=== PATIENT | female | born 1940 | race Hispanic/Latino ===

== ENCOUNTER 2021-06-04 18:32 | Inpatient (IN) | payer OTHER ==
[2021-06-04] MEDS ORDERED: ACETAMINOPHEN 650MG/RECT SUPP PR PRN (18:51)
[2021-06-04] MEDS ORDERED: BISACODYL 10 MG RECTAL SUPP PR PRN (18:52)
[2021-06-04] MEDS ORDERED: MORPHINE 2 MG/ML SYR IV PRN (18:55)
[2021-06-04] MEDS ORDERED: LORazepam 2 MG/ML VIAL IV PRN (18:56)
[2021-06-04] MEDS ORDERED: ONDANSETRON 4 MG/2 ML VIAL IV PRN (18:56)
[2021-06-04] MEDS ORDERED: SCOPOLAMINE HYDROBROMIDE PATCH TD SCH (20:00)
[2021-06-04] MEDS: LORazepam 2 MG/ML VIAL IV SCH (20:03)
[2021-06-04] MEDS: MORPHINE 2 MG/ML SYR IV SCH ×2 (20:06→22:47)
[2021-06-04 20:51] VITALS: O2SAT 76; BMI 28.3
[2021-06-05] MEDS: LORazepam 2 MG/ML VIAL IV SCH ×3 (01:19→08:01)
[2021-06-05] MEDS: MORPHINE 2 MG/ML SYR IV SCH ×5 (01:19→08:01)
[2021-06-05 08:39] VITALS: BP 65/37; TEMP 98.1
[2021-06-05] MEDS ORDERED: MEDIHONEY 44 ML TOPICAL TUBE TOP SCH (09:00)
== END 2021-06-05 08:47 | disposition expired | DRG 951 ==
LOC: 4TH 18:32
PROVIDERS: ADMIT Internal Medicine Hematology & Oncology; ATTEND Internal Medicine Hematology & Oncology
DX: Z51.5 Encounter for palliative care (principal)
CPT/HCPCS: J2270